=== PATIENT | female | born 1930 | race Caucasian/White ===

== ENCOUNTER → 2017-03-09 | Outpatient (CLI) | payer MEDICARE, OTHER ==
--- NOTE | ~2017-03-09 | CT4 ---
[facility] A Service of [facility] RADIOLOGY TEXT RESULTS PATIENT: CLIFFORD BRANCH LOCATION: [facility] : [birth year] UNIT #: [id number] AGE: [address]: Avelino Sanders MD SEX: F ORDER DR: [id number] [facility] [address] [place], [place] [address] [id number] O MR#: [id number] Acc #: [id number] NAME: CLIFFORD BRANCH : 1930 SEX: F STUDY DATE/TIME: 03/09/2017 12:21 UNIT: [facility] ROOM: STUDY DESCRIPTION: CT Abd and Pelv Wo Cont Attending Physician: Avelino Sanders M.D. Referring Physician: Avelino Sanders M.D. Ordering Physician: Avelino Sanders M.D. Primary Care Physician: Avelino Sanders M.D. MEDICAL IMAGING REPORT This report is preliminary unless electronic signature is present EXAM CT abdomen and pelvis without contrast INDICATION Microscopic hematuria. This has been going on for 2 weeks. Unable to urinate much. COMPARISON 12/09/2015. TECHNIQUE Axial 3 mm images were obtained through the abdomen and pelvis without IV or oral contrast. Sagittal and coronal reconstructions were generated. This CT exam was performed with one or more of the following radiation dose reduction techniques: Automatic exposure control, adjustment of mA and/or kV according to patient size, and iterative reconstruction. FINDINGS The lung bases are clear. The liver is normal. The gallbladder seems to have been removed. The spleen, pancreas, and adrenal glands are normal. The left kidney has a low-density lesion measuring about 13 mm in diameter. It measures 10 Hounsfield units. It was present on 12/09/2015 and has not changed in size and is likely almost certainly a cyst. Right kidney has a parenchymal calcification and measures 4 mm in size which is stable. There are no urinary stones. The aorta is normal in size. There is no adenopathy. There is a small phleboliths on image 90 which is adjacent to the right ureter and is unchanged from the prior study. The bowel is normal except for sigmoid diverticulosis. The bladder is normal. The uterus has been removed and there are no adnexal masses. Bones show degenerative changes. IMPRESSION 1. No urinary stones or obstruction are identified. [facility] A Service of [facility] RADIOLOGY TEXT RESULTS PATIENT: CLIFFORD BRANCH LOCATION: [facility] : [birth year] UNIT #: [id number] AGE: [address]: Avelino Sanders MD SEX: F ORDER DR: 2. There is a small low-density lesion in the upper pole of the left kidney consistent with a cyst which is unchanged from 12/08/2016. 3. Previous hysterectomy and cholecystectomy. Dictated by... Flako Garland M.D. THIS IS AN ELECTRONICALLY VERIFIED REPORT Flako Garland M.D. at 03/10/2017 2:05 PM YANI/melva TD: 03/10/2017 10:59 JOB #: [id number] MEDICAL IMAGING REPORT Page 1 of 1 COPY
== END | disposition home or self-care (01) ==
LOC: CCAT 12:01
DX: R31.29 Other microscopic hematuria (principal); N28.9 Disorder of kidney and ureter, unspecified; Z90.49 Acquired absence of other specified parts of digestive tract; Z90.710 Acquired absence of both cervix and uterus
CPT/HCPCS: 74176